=== PATIENT | male | born 1960 | race Caucasian/White ===

== ENCOUNTER 2020-07-15 05:41 | Day surgery (SDC) | payer BC ==
[2020-07-08 12:07] LABS: BASOPHILS % (AUTO) 0.5 % (0-1); EOSINOPHILS # (AUTO) 0.1 X10'3 (0-0.9); EOSINOPHILS % (AUTO) 1.6 % (0-6); LYMPHOCYTES # (AUTO) 1.6 X10'3 (1.1-4.8); LYMPHOCYTES % (AUTO) 21.8 % (21-51); MEAN CORPUSCULAR HEMOGLOBIN 30.2 PG (27.0-31.0); MEAN CORPUSCULAR HGB CONC 33.7 g/dL (33.0-36.5); MEAN CORPUSCULAR VOLUME 89.5 FL (78-98); MEAN PLATELET VOLUME 8.1 FL (7.4-10.4); MONOCYTES # (AUTO) 0.6 X10'3 (0-0.9); MONOCYTES % (AUTO) 8.6 % (2-12); NEUTROPHILS # (AUTO) 4.9 X10'3 (1.8-7.7); NEUTROPHILS % (AUTO) 67.5 % (42-75); PRE OP HEMATOCRIT 42.8 % (42.0-52.0); PRE OP HEMOGLOBIN 14.4 g/dL (14.0-17.9); PRE OP PLATELET COUNT 260 X10'3 (140-440); RED BLOOD COUNT 4.78 X10'6 (4.70-6.10); RED CELL DISTRIBUTION WIDTH 13.5 % (11.5-14.5)
[2020-07-08 12:21] LABS: ALBUMIN 4.2 G/DL (3.4-5.0); ALBUMIN/GLOBULIN RATIO 1.2 (1.1-1.5); ALKALINE PHOSPHATASE 46 IU/L (46-116); BLOOD UREA NITROGEN 17 MG/DL (7-18); BUN/CREATININE RATIO 20.2 (5.4-32.0); CALCIUM 9.1 MG/DL (8.5-10.1); CHLORIDE 104 MMOL/L (99-107); CREATININE 0.84 MG/DL (0.60-1.10); PRE OP ALT 32 U/L (30-65); PRE OP ANION GAP 8 (8-16); PRE OP AST 15 U/L (10-37); PRE OP BILIRUB, TOTAL 0.3 MG/DL (0.0-1.0); PRE OP GLUCOSE 101 MG/DL (70-104); PRE OP POTASSIUM 4.1 MMOL/L (3.4-5.1); PRE OP SODIUM 140 MMOL/L (135-145); TOTAL CARBON DIOXIDE 28.5 MMOL/L (24-32); TOTAL PROTEIN 7.7 G/DL (6.4-8.2); eGFR > 90 ML/MIN
[~2020-07-15] VITALS: Ht 188 cm; Wt 99.9 kg
[2020-07-15] VITALS (14 sets, daily range): BP systolic 124–161; BP diastolic 71–89
[~2020-07-15 05:41] MED LIST: NO HOME MEDS; ceFAZolin 2gm in dextrose, iso 50 ML IV ONE; famotidine 20mg tablet PO ONE; ringers solution, lacted 1,000 ML IV SCH
[2020-07-15] MEDS ORDERED: LIDOcaine 1% (10mg/ml) 2ml vial ONE (06:09)
[2020-07-15] MEDS ORDERED: BUPIVAcaine/PF 2.5 mg/ml (0.25%) 30ml vial ONE (06:42)
[2020-07-15] MEDS ORDERED: LIDOcaine 1% 30ml preserv. free vial ONE (06:42)
[2020-07-15] MEDS ORDERED: fentaNYL /PF 50mcg/ml 5ml ampule ONE (07:14)
[2020-07-15] MEDS ORDERED: MIDAZolam 5mg/5ml vial ONE (07:14)
[2020-07-15] MEDS ORDERED: ondansetron/PF 4mg/2ml inj ONE (07:16)
[2020-07-15] MEDS ORDERED: rocuronium 10mg/ml inj IV ONE (07:16)
[2020-07-15] MEDS ORDERED: neostigmine methylsulfate 1 MG/ML 10ml vial ONE (07:16)
[2020-07-15] MEDS ORDERED: LIDOcaine 2% (20mg/ml) 5ml vial ONE (07:16)
[2020-07-15] MEDS ORDERED: glycopyrrolate 0.2mg/ml inj ONE (07:16)
[2020-07-15] MEDS ORDERED: dexamethasone sod phosphate 4mg/ml inj. ONE (07:16)
[2020-07-15] MEDS ORDERED: propofol inj 20 ML IV ONE (07:16)
[2020-07-15] MEDS ORDERED: morphine 2 MG/ML inj. syringe IV PRN (07:25)
[2020-07-15] MEDS ORDERED: fentaNYL/PF 50MCG/1 ML 2ML syringe IV PRN ×2 (07:25)
[2020-07-15] MEDS ORDERED: ringers solution, lacted 1,000 ML IV SCH (07:25)
[2020-07-15] MEDS ORDERED: morphine 4 MG/ML inj SYRINge IV PRN (07:25)
[2020-07-15] MEDS ORDERED: labetalol 20mg/4ml (5mg/ml) syringe IV PRN (07:25)
[2020-07-15] MEDS ORDERED: ondansetron/PF 4mg/2ml inj IV PRN (07:25)
[2020-07-15] MEDS ORDERED: hydrALAZINE 20mg/ml inj. IV PRN (07:25)
[2020-07-15] MEDS ORDERED: HYDROcodone/acetaminophen 5mg/325mg tablet PO PRN (09:15)
[2020-07-15] MEDS ORDERED: HYDROcodone/acetaminophen 10/325mg tab PO PRN (09:15)
--- NOTE | 2020-07-15 09:15 | NUR ---
Received from OR via BED , accompanied by Anesthesiologist DR THOMAS and report given by Anesthesiolgist. PATIENT WAKING UP, DENIES PAIN, V/S WNL, NEUROVASCULAR CHECKS INTACT, 20G PIV LUE, SCD ON, BANDAIDS TO LAP SIGHTS OF ABDOMEN CDI.
--- NOTE | 2020-07-15 11:32 | NUR ---
PATIENT UNABLE TO VOID, STRAIGHT CATH ORDERED PER DR GALLEGOS AND D/C HOME AFTER THIS. PATIENT AWARE OF RISKS OF NOT BEING ABLE TO VOID AFTER STRAIGHT CATH AND IS WILLING TO ASSUME THE RISK AFTER DISCUSSING ALL RISKS AND BENEFITS OF STRAIGHT CATH VS D/C HOME WITH F/C WITH LEG BAG. PATIENT STILL CHOOSING STRAIGHT CATH AND D/C HOME.
[2020-07-15] MEDS ORDERED: LIDOcaine 2% 10ml TOPICAL JELLY (Urojet) MM ONE (11:35)
--- NOTE | 2020-07-15 12:15 | NUR ---
PATIENT A&OX4P, DENIES PAIN, V/S WNL, NEUROVASCULAR CHECKS INTACT, 20G PIV LUE D/C, SCD OFF, BANDAIDS TO LAP SIGHTS OF ABDOMEN CDI. PATIENT STRAIGHT CATHED FOR 700CC URINE WITHOUT COMPLICATIONS. DR GALLEGOS STATED PATIENT MAY BE D/C HOME IF HE WISHES LONG HE UNDERSTAND RISKS WHICH THEY DISCUSSED TOGETHER AT LENGTH. I HAVE REVIEWED D/C INSTRUCTIONS WITH PATIENT AND FAMILY HAVE VERBALIZED UNDERSTANDING.PATIENT WAS D/C HOME WITH ALL BELONGINGS AND FAMILY GAVE TRANSPORT HOME.
== END 2020-07-15 12:15 | disposition home or self-care (01) ==
LOC: PAS 05:41
PROVIDERS: ATTEND Surgery
DX: K40.90 Unilateral inguinal hernia, without obstruction or gangrene, not specified as recurrent (principal); K42.9 Umbilical hernia without obstruction or gangrene; D17.6 Benign lipomatous neoplasm of spermatic cord; Z20.822 Contact with and (suspected) exposure to COVID-19; Z79.899 Other long term (current) drug therapy; Z98.890 Other specified postprocedural states
CPT/HCPCS: 36415; 49585; 49650; 80053; 82948; 85025; 87635; 93005; C1781; J1100; J2001; J2250; J2405; J2704; J2710; J3010; J3490; S2900; A4215; A4618; J7120